=== PATIENT | female | born 1990 | race Caucasian/White ===

== ENCOUNTER 2017-10-16 07:54 | Emergency (ER) | payer OTHER, SELFPAY | END 2017-10-16 08:40 | disposition home or self-care (01) | LOC: ERS 07:54 | DX: S16.1XXA Strain of muscle, fascia and tendon at neck level, initial encounter (principal); S29.012A Strain of muscle and tendon of back wall of thorax, initial encounter; V49.9XXA Car occupant (driver) (passenger) injured in unspecified traffic accident, initial encounter | CPT/HCPCS: 99283 ==

== ENCOUNTER 2020-02-20 06:04 | Outpatient (CLI) | payer OTHER ==
[2020-02-20 11:23] LABS: PTT 29.8 sec (22.9-36.1); Prothrombin Time 13.3 sec (12.0-14.7)
[2020-02-20 11:36] LABS: Hemoglobin 14.5 g/dL (12.0-16.0); Mean Corpuscular HGB CONC 33.8 g/dL (32.0-36.0); Mean Corpuscular Volume 88.8 fL (78.0-98.0); Mean Platelet Volume 9.5 fL (7.4-10.4); Platelet Count 202 thou/uL (130-400); RBC Distribution Width 11.2 % (11.5-14.5); Red Blood Cell (RBC) Count 4.83 mill/uL (4.20-5.40); White Blood Cell (WBC) Count 6.1 thou/uL (4.8-10.8)
[2020-02-20 11:45] LABS: BHCG - Serum Negative (NEGATIVE); Pregs Control Background? CLEAR/WHITE (CLR/WHITE); Pregs Control Bar Appear? YES (CONTROL BAR)
[2020-02-20 12:43] LABS: Anion Gap 14 mmol/L (10-20); BUN (Urea Nitrogen) 12 mg/dL (7.0-18.7); Calc. Creatinine Clearance 0 mL/min (70-130); Calcium 8.8 mg/dL (7.8-10.44); Carbon Dioxide 23 mmol/L (22-29); Chloride 106 mmol/L (98-107); Estimated GFR-MDRD 68; Glucose 94 mg/dL (70-105); Potassium 4.1 mmol/L (3.5-5.1); Sodium 139 mmol/L (136-145)
[2020-02-20 17:57] LABS: SARS-CoV-2 MS2 Positive; SARS-CoV-2 N Gene Negative; SARS-CoV-2 S Gene Negative; SARS-CoV-2 by NAA Not Detected (NotDetected); SARS-CoV-2 orf1ab Negative
== END 2020-02-20 06:05 | disposition home or self-care (01) ==
LOC: LABBT 06:04
PROVIDERS: ATTEND Urology
DX: Z01.812 Encounter for preprocedural laboratory examination (principal); Z20.828 Contact with and (suspected) exposure to other viral communicable diseases; R31.29 Other microscopic hematuria; N20.2 Calculus of kidney with calculus of ureter
CPT/HCPCS: 80048; 84703; 85027; 85610; 85730; 87635; U0003

== ENCOUNTER 2020-02-22 08:19 | Day surgery (SDC) | payer OTHER, SELFPAY ==
[2020-02-17 12:02] VITALS: BMI 19.6
--- NOTE | 2020-02-22 09:07 | RAD ---
KUB: 02/22/2020 COMPARISON: CT abdomen and pelvis 02/10/2020 HISTORY: Preoperative patient FINDINGS: There is a calcification measuring approximately 1 cm in craniocaudal dimension to the left of the L3-4 disc interspace suggesting a stable stone within the mid left ureter. Multiple pelvic calcifications are noted, likely on the basis of vascular calcifications. Cholecystectomy clips are p resent. IMPRESSION: 1 cm calcification in the left paraspinal region at L3-4 suggesting a stone within the mi d left ureter.
[2020-02-22] MEDS ORDERED: Levofloxacin 500 mg/D5W 100 ml Premix Bag ONE (09:49)
[2020-02-22] MEDS ORDERED: Iothalamate Meglumine 60% 50 ML VIAL FS ONE (10:11)
[2020-02-22] MEDS ORDERED: Fentanyl 100 MCG/2 ML VIAL ONE (10:12)
[2020-02-22] MEDS ORDERED: Lidocaine 2% Jelly 5 ML TUBE ONE (10:12)
--- NOTE | 2020-02-22 11:37 | RAD ---
EXAM: Retrograde IVP HISTORY: Left ureteral stone COMPARISON: CT abdomen/pelvis 02/10/2020 and KUB 02/22/2020 FINDINGS/IMPRESSION: Limited intraoperative fluoroscopic views of the retrograde IVP were submitted f or interpretation. The 7 mm calcification is visualized on this exam, unchanged in position compared to the KUB. Eventually, a lithotripsy instrument is placed and the calcification is no longe r visualized after that. There is moderate left hydronephrosis. Eventually, a ureteral stent is placed on the left in good position. Cholecystectomy clips are seen.
[2020-02-22] MEDS ORDERED: Oxybutynin 5 MG TAB ONE ×2 (11:44→11:46)
[2020-02-22] MEDS ORDERED: Phenazopyridine HCl 97.5 MG TABLET ONE (11:44)
[2020-02-22] MEDS ORDERED: Promethazine HCl 25 MG/ML VIAL ONE (12:05)
[2020-02-22] MEDS ORDERED: Meperidine HCl/PF 25 MG/ML VIAL ONE (12:17)
--- NOTE | 2020-02-22 13:52 | OP ---
DATE OF PROCEDURE: 02/22/2020 PREOPERATIVE DIAGNOSES: 1. A 29-year-old female with history of left 1 cm x 4 mm proximal ureteral calculi at the level of L3. 2. Left lower pole linear 5 mm x 2 mm renal calculi, right kidney unremarkable. POSTOPERATIVE DIAGNOSES: 1. A 29-year-old female with history of left 1 cm x 4 mm proximal ureteral calculi at the level of L3. 2. Left lower pole linear 5 mm x 2 mm renal calculi, right kidney unremarkable. PROCEDURES PERFORMED: Cystoscopy, left retrograde pyelogram, 6 x 22 double-J ureteral stent placement with Dangler, ureteroscopy, laser lithotripsy, balloon dilation of the distal ureter. ANESTHESIA: General. COMPLICATIONS: None apparent. SPECIMEN: None. DISPOSITION: To recovery room in stable condition. INDICATIONS FOR PROCEDURE AND HISTORY: Isis is a 29-year-old female, who presented to the emergency room due to left flank pain. Pain rated 10/[address] demonstrated left proximal ureteral calculi measuring about 8 to 10 mm in craniocaudal dimension by 4 mm in transverse dimension. She also has a left upper pole punctate renal calculi and a left lower pole linear calcific density about 5 mm x 2 mm. She presents today for stent, ureteroscopy, laser lithotripsy with full understanding regarding possible secondary procedure. Risks and complications including, but not limited to: Bleeding, pain, infection, injury to adjacent organs, ureteral renal kidney injury, stricture formation. All questions were answered to her satisfaction and she desired to proceed. DESCRIPTION OF PROCEDURE: After an informed consent was signed, the patient was taken to the operating room, placed in a dorsal lithotomy position with the genital area prepped and draped in the usual surgical sterile fashion. A 22-Malaysian cystoscope was utilized. There was mild resistance passing the scope. However, we were able to pass the cystoscope atraumatically through the urethra into the bladder. The UOs are in normal orthotopic position bilaterally with no evidence of bladder calculi. A retrograde pyelogram was performed with an open-ended catheter, demonstrating the radiopaque stone at the level of L3 with proximal hydronephrosis. A 0.035 Sensor wire was negotiated into the left upper pole, however, this required some manipulation due to the obstructing stone. With the wire in place, we balloon dilated the distal intramural ureter with a [employer] 6 cm 12-Malaysian balloon. With subsequent dilatation, balloon was completely deflated and a 12 x 14-Malaysian navigator was passed atraumatically. Prior to passing the navigator, we did use a 10-Malaysian dual-lumen access sheath passing a 0.035 Super Stiff wire into the left upper pole, subsequently the navigator was passed through the Super Stiff wire. With the navigator passed to the level of the stone, we passed a flexible digital ureteroscope to the level of the stone. Using 200 micron laser fiber at 1.0 joules, we laser lithotripsied the stone. It was somewhat adherent, however, easily pushed into the level of the renal pelvis and we laser lithotripsied the stone there. We laser lithotripsied the stone into tiny multiple small fragments. Some of the stone debris did migrate into the mid and the lower pole. We laser lithotripsied the residual fragments there. At the end of the procedure, stone nidus was fragmented debris in which she would most likely pass, not warranting basket extraction. I did survey the collecting system, looking for the lower pole linear calcific density, however, this was not found, the stone migrated fragments may have hindered what appeared to be there as well. Nevertheless, what remained in the collecting system is dust-like stone debris that she will most likely pass. We surveyed the ureter, which demonstrated no evidence of mucosal injury of concern nor stone nidus. A 6 x 22 double-J ureteral stent was passed without difficulty and Dangler was left in situ, as there was endoscopic clearance. Bladder was completely emptied and the stent string was taped to the patient's pubic symphysis. She is discharged with tramadol 50 mg 1 to 2 p.o. q.6 hours p.r.n., oxybutynin 10 mg #20, ciprofloxacin until followup appointment with me next week, Azo p.r.n., Colace p.r.n. She has an appointment with me on March 01 at 8:00 a.m. for stent pull on Dangler. Job ID: [id number] [facility]anth
[2020-02-22] MEDS ORDERED: Ketorolac Tromethamine 30 MG/ML VIAL ONE (15:10)
[2020-02-22] MEDS ORDERED: Ondansetron PF 4 MG/2 ML Vial ONE (15:10)
[2020-02-22] MEDS ORDERED: Glycopyrrolate 0.2 MG/ML 5 ML SYRINGE ONE (15:10)
[2020-02-22] MEDS ORDERED: Lidocaine 1% PF 5 ML VIAL ONE (15:10)
[2020-02-22] MEDS ORDERED: PROPOFOL 200 MG/20 ML VIAL ONE (15:10)
[2020-02-22] MEDS ORDERED: Rocuronium Bromide 10 MG/ML (10ML VIAL) ONE (15:10)
[2020-02-22] MEDS ORDERED: Dexamethasone 20 MG/5 ML VIAL ONE (15:10)
== END 2020-02-22 14:55 | disposition home or self-care (01) ==
LOC: SDC 08:19
PROVIDERS: ATTEND Urology
PROC: 0TC78ZZ Extirpation of Matter from Left Ureter, Via Natural or Artificial Opening Endoscopic (ICD-10-PCS; principal; 2020-02-22)
PROC: 0T778DZ Dilation of Left Ureter with Intraluminal Device, Via Natural or Artificial Opening Endoscopic (ICD-10-PCS; principal; 2020-02-22)
DX: N13.2 Hydronephrosis with renal and ureteral calculous obstruction (principal); R31.29 Other microscopic hematuria; Z88.8 Allergy status to other drugs, medicaments and biological substances
CPT/HCPCS: 74018; 74420; J1100; J1885; J1956; J2175; J2405; J2550; J2704; J3010